=== PATIENT | female | born 1965 | race Caucasian/White ===

== ENCOUNTER 2019-01-19 04:05 | Inpatient (IN) | payer OTHER ==
[~2019-01-19] VITALS: Ht 165.1 cm; Wt 109.0 kg
[~2019-01-19 04:05] MED LIST: ATOR20TA17 PO; ATORVASTATIN CALCIUM; CHOL50009 PO; FURO40TA4 PO; GABA-526 PO; GABA300C16 PO; IBUP-1545 PO; LISI-313 PO; LORA0.5T PO; MECL-77 PO; MECL12.5 PO; MELO7.5O PO; OMEP40CA6 PO; PANT20TA3 PO; PANT40TA4 PO; RANI300C7 PO; RANI300T PO; SPIR25TA PO; SPIRONOLACTONE; TRAM50TA2 PO; [UNRECOGNIZED DRUG - CODE]
[2019-01-19 07:28] VITALS: BP 119/68; PULSE 76; RESP 16
[2019-01-19 07:46] VITALS: Ht 165.1 cm; Wt 109.0 kg
[2019-01-19] MEDS ORDERED: LORAZEPAM 0.5 MG TAB PO PRN (09:00)
[2019-01-19] MEDS ORDERED: CHOLECALCIFEROL 1,000 UNIT TAB PO SCH (09:00)
[2019-01-19] MEDS ORDERED: VANCOMYCIN IV PER PHARMACY XX SCH (10:00)
--- NOTE | 2019-01-19 10:54 | HP ---
Date/Time of Note Date/Time of Note DATE: 01/19/19 TIME: 10:46 Assessment/Plan VTE Prophylaxis Risk score (from Nsg)>0 risk: 2 SCD applied (from Ns): Yes Pharmacological prophylaxis: heparin Lines/Catheters IV Catheter Type (from Nrs): Saline Lock Assessment/Plan Hospital Course Assessment and plan 1. Right lower extremity cellulitis - We will start on antibiotics. - Follow-up on blood cultures - Infectious disease physician consulted Antipyretics as needed for fever 2.Obesity. - Weight reduction was advised. -We will get dietitian to follow 3. Hypertension. Resume on antihypertensives. Will adjust as needed 4. Hyperlipidemia. Resume on statin medication Follow-up on CHD panel 5. Suspect neuropathy. Continue home medications Discussed plan of care with Dr. Yair MIRANDA/MAI Admit Date/Time Admit Date/Time Jan 19, 2019 at 07:05 Hx of Present Illness This is a 53-year-old female with past medical history of hyperlipidemia, hypertension, GERD, neuropathy, came to [facility] due to right lower extremity swelling and pain. Patient reports that her symptoms on her right lower extremity started 14 days ago. She stated 5 days after onset she went to [facility] and the [facility] and received doxycycline antibiotic which did not help. Several days past and she went to [facility] and received Keflex with no improvement from antibiotic. The day prior to admission she did go to [facility] and did have ultrasound of bilateral lower extremities which on report was negative for any DVT. Due to insurance issues she was brought to [facility] for further evaluation. On further examination she was noted with right lower extremity swelling painful to palpation. No obvious drainage however patient did report that the right lower extremity does drain clear fluid at times. She denies any fevers. She reports having difficulty with ambulation due to swelling on right lower extremity. Reports no other symptoms. We will evaluate her for the aformentiond issues. ROS 12 point review of systems obtained and entirely negative except as mentioned in the history of present illness PMH/Family/Social Past Medical History Medical/surgical history 1. Hypertension 2. Hyperlipidemia 3. Suspect neuropathy 4. Obesity 5. Hysterectomy in 2014 6. History of tonsillectomy Medications Current Medications Atorvastatin Calcium (Lipitor) 20 mg DAILY PO ; Start 01/19/19 at 09:00 Cholecalciferol (Vitamin D) 5,000 unit DAILY PO ; Start 01/19/19 at 09:00 Furosemide (Lasix) 40 mg DAILY PO ; Start 01/19/19 at 09:00 Gabapentin (Neurontin) 300 mg BID PO ; Start 01/19/19 at 09:00 Lisinopril (Zestril) 5 mg DAILY PO ; Start 01/19/19 at 09:00 Lorazepam (Ativan) 0.5 mg DAILY PRN PO AGITATION/ANXIETY; Start 01/19/19 at 09:00 Pantoprazole (Protonix Tab) 40 mg DAILY@0600 PO ; Start 01/19/19 at 09:00 Spironolactone (Aldactone) 25 mg DAILY PO ; Start 01/19/19 at 09:00 Vancomycin HCl (Vanco Iv Per Pharmacy) VANCOMYCIN PER PHARMACY PER PROTOCOL XX ; Start 01/19/19 at 10:00; Status UNV Piperacillin Sod/ Tazobactam Sod 100 ml @ 200 mls/hr Q6 IVPB ; Start 01/19/19 at 12:00 Vancomycin HCl 2 gm/Sodium Chloride 500 ml @ 125 mls/hr Q24H IVPB ; Start 01/19/19 at 12:00 Coded Allergies: No Known Drug Allergies (Verified Allergy, Unknown, 01/19/19) Family History Significant Family History: no pertinent family hx Social History Alcohol Use: none Smoking Status: Never smoker Drug Use: none Exam/Review of Systems Vital Signs Vitals Vital Signs Date Temp Pulse Resp B/P (MAP) Pulse Ox O2 O2 Flow FiO2 Time Delivery Rate 01/19/19 98.0 76 16 119/68 96 07:28 (85) Exam Constitutional: alert, other (Obese) Psych: nl mood/affect Head: normocephalic Eyes: nl conjunctiva Neck: supple, non-tender Respiratory: clear to auscultation Cardiovascular: regular rate and rhythm Gastrointestinal: soft Extremities: edema (Bilateral lower extremities more notably on the right lower extremity with erythema on right lower extremity and no obvious drainage on right lower extremity) Neurological: ADJUST[employer]LECT[employer] CONTACTS II-XII intact, nl mental status, nl speech Skin: other (Erythema on right lower extremity) CHANNING HARLEY NP Jan 19, 2019 10:54
[2019-01-19] MEDS ORDERED: VANCOMYCIN HCL 2 GM in SOD CHLORIDE 0.9% 500 ML IVPB SCH (12:00)
[2019-01-19] MEDS ORDERED: DIPHENHYDRAMINE 50 MG INJ IM PRN (12:30)
[2019-01-19] MEDS: PIPER-TAZO 3.375 GM IV (PMX) 100 ML IVPB SCH ×3 (12:37→23:22)
[2019-01-19] MEDS: GABAPENTIN 300 MG CAP PO SCH ×2 (12:40→20:49)
[2019-01-19] MEDS: ATORVASTATIN 20 MG TAB PO SCH (12:40)
[2019-01-19] MEDS: PANTOPRAZOLE (EC) 40 MG TAB PO SCH (12:40)
[2019-01-19] MEDS: SPIRONOLACTONE 25 MG TAB PO SCH (12:40)
[2019-01-19] MEDS: CHOLECALCIFEROL 1,000 UNIT TAB PO SCH (12:40)
[2019-01-19] MEDS: FUROSEMIDE 40 MG TAB PO SCH (12:41)
[2019-01-19] MEDS: LISINOPRIL 5 MG TAB PO SCH (12:41)
[2019-01-19 14:13] VITALS: BP 112/66; PULSE 73; RESP 16
[2019-01-19] MEDS: DIPHENHYDRAMINE 50 MG INJ IV PRN (16:39)
--- NOTE | 2019-01-19 18:03 | CONS ---
DATE OF ADMISSION: 01/19/2019 DATE OF CONSULTATION: 01/19/2019 TYPE OF CONSULTATION: Infectious disease. REASON FOR CONSULTATION: Antibiotic management. HISTORY OF PRESENT ILLNESS: Polly Recinos is a 53-year-old female with a number of problems, who c omes in with right lower extremity cellulitis and is being seen for antibiotic management. Her past problems include: 1. Hyperlipidemia. 2. Hypertension. 3. GERD. 4. Peripheral neuropathy. 5. Obesity. 6. Status post hysterectomy in 2014. 7. Status post tonsillectomy. The patient came to [facility] with right lower extremity swelling and pain. Her symp toms started 14 days ago, and she states that 5 days after the onset, she went to [facility] and received doxycycline, which did not seem to help the right lower extremity cellulitis. She went to the [facility], several days later, received Keflex with no improvement. On the day prior to admission, she went to [facility], had an ultrasound of the bilateral lower ex tremities, the patient was noted to have right lower extremity swelling, painful to palpation. There is no drainage, but the patient reports that at times, there is clear fluid that drains from the rig ht lower extremity. There are no fevers. PAST MEDICAL HISTORY: Operations as outlined. FAMILY HISTORY: Noncontributory. SOCIAL HISTORY: She does not smoke, drink or abuse drugs. ALLERGIES: NONE TO PENICILLIN, SULFA OR FOODS. MEDICATIONS: Per chart. REVIEW OF SYSTEMS: As per HPI. PHYSICAL EXAMINATION: GENERAL: The patient is a well-developed, well-nourished, obese female, who is awake, responsive, in no acute distress. VITAL SIGNS: Stable. She is afebrile. SKIN: Without generalized rash. HEENT: Within normal limits. NECK: Supple. LYMPH NODES: None palpable. CHEST: Decreased breath sounds at the bases. HEART: Without murmur or gallop. ABDOMEN: Soft, nontender, without organosplenomegaly or masses. EXTREMITIES: She has edema of bilateral lower extremities, more so on the right than the left. She has erythema of the right lower extremity. No obvious drainage. RECTAL AND GENITAL: Deferred. NEUROLOGIC: No focal neurological abnormalities. IMPRESSION AND PLAN: The patient was started on vancomycin and Zosyn for cellulitis. White count wa s 5.6, H and H 13.4 and 42.1, platelet count of 239,000. BUN and creatinine 13/0.65. Continue curre nt therapy. I will dictate my findings to the hospitalist. Dictated By: KRYSTAL HALLMAN MD, JD/NTS Conf#: [id number] DID#: [id number] CC: JAMIE CESAR MD;*EndCC*
[2019-01-19 20:00] VITALS: BP 100/56; PULSE 79; RESP 18
[2019-01-19] MEDS ORDERED: ACETAMINOPHEN 325 MG TAB PO PRN (20:00)
[2019-01-19] MEDS ORDERED: IBUPROFEN 600 MG TAB PO PRN (20:00)
[2019-01-19] MEDS: HEPARIN 5,000 UNIT/1 ML VIAL SC SCH (20:49)
[2019-01-19] MEDS: VANCOMYCIN 1 GM 250 ML IVPB SCH (23:55)
[2019-01-20 02:00] VITALS: BP 106/57; PULSE 70; RESP 18
[2019-01-20] MEDS: PIPER-TAZO 3.375 GM IV (PMX) 100 ML IVPB SCH ×2 (05:32→11:10)
[2019-01-20] MEDS: PANTOPRAZOLE (EC) 40 MG TAB PO SCH (05:32)
[2019-01-20] MEDS: DIPHENHYDRAMINE 50 MG INJ IV PRN ×3 (05:35→21:16)
[2019-01-20 07:57] VITALS: BP 113/63; PULSE 72; RESP 16
[2019-01-20] MEDS: GABAPENTIN 300 MG CAP PO SCH ×2 (08:13→20:06)
[2019-01-20] MEDS: ATORVASTATIN 20 MG TAB PO SCH (08:13)
[2019-01-20] MEDS: HEPARIN 5,000 UNIT/1 ML VIAL SC SCH ×2 (08:13→20:09)
[2019-01-20] MEDS: LISINOPRIL 5 MG TAB PO SCH (08:13)
[2019-01-20] MEDS: SPIRONOLACTONE 25 MG TAB PO SCH (08:14)
[2019-01-20] MEDS: FUROSEMIDE 40 MG TAB PO SCH (08:14)
[2019-01-20] MEDS: CHOLECALCIFEROL 1,000 UNIT TAB PO SCH (10:33)
[2019-01-20] MEDS: FISH OIL 1,000 MG CAP PO SCH ×2 (10:33→20:06)
--- NOTE | 2019-01-20 10:39 | PN ---
Date/Time of Note Date/Time of Note DATE: 01/20/19 TIME: 10:36 Assessment/Plan VTE Prophylaxis Risk score (from Ns)>0 risk: 3 SCD applied (from Ns): Yes Pharmacological prophylaxis: heparin Lines/Catheters IV Catheter Type (from Nrs): Peripheral IV Urinary Cath still in place: No Assessment/Plan Hospital Course Assessment and plan 1. Right lower extremity cellulitis -continue on antibiotics. - Follow-up on blood cultures - Infectious disease physician following - Antipyretics as needed for fever 2.Obesity. - Weight reduction was advised. 3. Hypertension. - Resume on antihypertensives. Will adjust as needed 4. Hyperlipidemia. - continue on statin medication 5. Suspect neuropathy. Continue home medications DISPO/PLAN: Appears to be overall improving. continue abx. f/u cultures. f/u with ID for d/c planning Discussed plan of care with Dr. Mazariegos Result Diagram: 01/19/19 1041 01/19/19 1041 Results 24hrs Laboratory Tests Test 01/19/19 10:41 01/20/19 04:49 White Blood Count 5.6 # Red Blood Count 4.79 # Hemoglobin 13.4 # Hematocrit 42.1 # Mean Corpuscular Volume 87.9 Mean Corpuscular Hemoglobin 28.0 L Mean Corpuscular Hemoglobin Concent 31.8 L Red Cell Distribution Width 12.7 Platelet Count 239 Mean Platelet Volume 9.8 Immature Granulocytes % 0.400 Neutrophils % 52.4 Lymphocytes % 33.0 Monocytes % 8.7 Eosinophils % 5.3 Basophils % 0.2 Nucleated Red Blood Cells % 0.0 Immature Granulocytes # 0.020 Neutrophils # 3.0 Lymphocytes # 1.9 Monocytes # 0.5 Eosinophils # 0.3 Basophils # 0.0 Nucleated Red Blood Cells # 0.0 Sodium Level 141 Potassium Level 4.3 Chloride Level 106 Carbon Dioxide Level 28 Anion Gap 7 Blood Urea Nitrogen 13 Creatinine 0.65 Est Glomerular Filtrat Rate mL/min > 60 Glucose Level 93 Calcium Level 9.4 Total Bilirubin 0.5 Direct Bilirubin 0.00 Indirect Bilirubin 0.5 Aspartate Amino Transf (AST/SGOT) 29 Alanine Aminotransferase (ALT/SGPT) 35 Alkaline Phosphatase 113 Total Protein 7.1 Albumin 3.9 Globulin 3.20 Albumin/Globulin Ratio 1.21 Hemoglobin A1c 5.2 Triglycerides Level 231 H Cholesterol Level 182 LDL Cholesterol, Calculated 108 HDL Cholesterol 28 L Cholesterol/HDL Ratio 6.5 Free Thyroxine Index 2.25 Thyroxine (T4) 7.0 Triiodothyronine (T3) Uptake 32.1 Subjective 24 Hr Interval Summary Free Text/Dictation reports less pain on RLE. States she can put weight on leg now. Exam/Review of Systems Exam Vitals Vital Signs Date Temp Pulse Resp B/P (MAP) Pulse Ox O2 O2 Flow FiO2 Time Delivery Rate 01/20/19 97.8 72 16 113/63 97 07:57 (80) Intake and Output 01/19/19 01/19/19 01/20/19 1515:00 23:00 07:00 IntakeIntake Total 740 ml 1120 ml 1050 ml OutputOutput Total 800 ml BalanceBalance 740 ml 320 ml 1050 ml Constitutional: alert, oriented, obese Psych: no complaints Head: normocephalic Neck: supple, non-tender Respiratory: clear to auscultation, normal air movement Cardiovascular: regular rate and rhythm Gastrointestinal: soft, non-tender Musculoskeletal: swelling (BLE) 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, nl mental status, nl speech Skin: other (erythema RLE, getting better ) Results Results 24hrs Laboratory Tests Test 01/19/19 10:41 01/20/19 04:49 White Blood Count 5.6 # Red Blood Count 4.79 # Hemoglobin 13.4 # Hematocrit 42.1 # Mean Corpuscular Volume 87.9 Mean Corpuscular Hemoglobin 28.0 L Mean Corpuscular Hemoglobin Concent 31.8 L Red Cell Distribution Width 12.7 Platelet Count 239 Mean Platelet Volume 9.8 Immature Granulocytes % 0.400 Neutrophils % 52.4 Lymphocytes % 33.0 Monocytes % 8.7 Eosinophils % 5.3 Basophils % 0.2 Nucleated Red Blood Cells % 0.0 Immature Granulocytes # 0.020 Neutrophils # 3.0 Lymphocytes # 1.9 Monocytes # 0.5 Eosinophils # 0.3 Basophils # 0.0 Nucleated Red Blood Cells # 0.0 Sodium Level 141 Potassium Level 4.3 Chloride Level 106 Carbon Dioxide Level 28 Anion Gap 7 Blood Urea Nitrogen 13 Creatinine 0.65 Est Glomerular Filtrat Rate mL/min > 60 Glucose Level 93 Calcium Level 9.4 Total Bilirubin 0.5 Direct Bilirubin 0.00 Indirect Bilirubin 0.5 Aspartate Amino Transf (AST/SGOT) 29 Alanine Aminotransferase (ALT/SGPT) 35 Alkaline Phosphatase 113 Total Protein 7.1 Albumin 3.9 Globulin 3.20 Albumin/Globulin Ratio 1.21 Hemoglobin A1c 5.2 Triglycerides Level 231 H Cholesterol Level 182 LDL Cholesterol, Calculated 108 HDL Cholesterol 28 L Cholesterol/HDL Ratio 6.5 Free Thyroxine Index 2.25 Thyroxine (T4) 7.0 Triiodothyronine (T3) Uptake 32.1 Medications Medication Current Medications Atorvastatin Calcium (Lipitor) 20 mg DAILY PO Last administered on 01/20/19 08:13; Admin Dose 20 MG; Start 01/19/19 at 09:00 Cholecalciferol (Vitamin D) 5,000 unit DAILY PO Last administered on 01/20/19 10:33; Admin Dose 5,000 UNIT; Start 01/19/19 at 09:00 Furosemide (Lasix) 40 mg DAILY PO Last administered on 01/20/19 08:14; Admin Dose 40 MG; Start 01/19/19 at 09:00 Gabapentin (Neurontin) 300 mg BID PO Last administered on 01/20/19 08:13; Admin Dose 300 MG; Start 01/19/19 at 09:00 Lisinopril (Zestril) 5 mg DAILY PO Last administered on 01/20/19 08:13; Admin Dose 5 MG; Start 01/19/19 at 09:00 Lorazepam (Ativan) 0.5 mg DAILY PRN PO AGITATION/ANXIETY; Start 01/19/19 at 09:00 Pantoprazole (Protonix Tab) 40 mg DAILY@0600 PO Last administered on 01/20/19 05:32; Admin Dose 40 MG; Start 01/19/19 at 09:00 Spironolactone (Aldactone) 25 mg DAILY PO Last administered on 01/20/19 08:14; Admin Dose 25 MG; Start 01/19/19 at 09:00 Vancomycin HCl (Vanco Iv Per Pharmacy) VANCOMYCIN PER PHARMACY PER PROTOCOL XX ; Start 01/19/19 at 10:00 Piperacillin Sod/ Tazobactam Sod 100 ml @ 200 mls/hr Q6 IVPB Last administered on 01/20/19 05:32; Admin Dose 200 MLS/HR; Start 01/19/19 at 12:00 Heparin Sodium (Porcine) (Heparin (5000 Units/1ml)) 5,000 unit BID SC Last administered on 01/20/19 08:13; Admin Dose 5,000 UNIT; Start 01/19/19 at 21:00 Vancomycin HCl 250 ml @ 125 mls/hr Q12H IVPB Last administered on 01/19/19at 23:55; Admin Dose 125 MLS/HR; Start 01/20/19 at 00:00 Diphenhydramine HCl (Benadryl) 25 mg Q6H PRN IV pruritis Last administered on 01/20/19at 05:35; Admin Dose 25 MG; Start 01/19/19 at 16:00 Acetaminophen (Tylenol Tab) 650 mg Q6H PRN PO MILD PAIN(1-3)OR ELEVATED TEMP; Start 01/19/19 at 20:00 Ibuprofen (Motrin) 600 mg Q6H PRN PO MILD PAIN LEVEL 1-3 Last administered on 01/19/19at 20:00; Admin Dose 600 MG; Start 01/19/19 at 20:00 Miscellaneous Information (*Rx Drug Level Order Reminder*) VANCO TROUGH 01/20 @ 2,300 2300 ONCE XX ; Start 01/20/19 at 23:00; Stop 01/20/19 at 23:01 Fish Oil (Fish Oil) 1,000 mg BID PO Last administered on 01/20/19at 10:33; Admin Dose 1,000 MG; Start 01/20/19 at 09:00 CHANNING HARLEY NP Jan 20, 2019 10:39
[2019-01-20] MEDS: VANCOMYCIN 1 GM 250 ML IVPB SCH ×2 (12:51→23:47)
--- NOTE | 2019-01-20 14:20 | CONS ---
Assessment/Plan Assessment/Plan Hospital Course (Demo Recall) Alert looks comfortable right lower extremity pain is better swelling is better no fevers overnight antimicrobials vancomycin Zosyn Microbiology: Blood culture negative Physical examination obese well-developed middle-aged woman who is alert in no distress. Head atraumatic normocephalic neck is supple chest rise symmetrical breath sounds clear heart: S1-S2 abdomen soft bowel sounds present extremities with right lower extremity edema and erythema below knee Assessment: 1. Right lower extremity cellulitis 2. Obesity Plan: Patient remains stable were going to change Zosyn to Rocephin continue vancomycin keep right lower extremity elevated in order ultrasound to rule out DVT Consultation Date/Type/Reason Admit Date/Time Jan 19, 2019 at 07:05 Initial Consult Date Type of Consult id Date/Time of Note DATE: 01/20/19 TIME: 14:20 Exam/Review of Systems Exam Vitals Vital Signs Date Temp Pulse Resp B/P (MAP) Pulse Ox O2 O2 Flow FiO2 Time Delivery Rate 01/20/19 97.8 72 16 113/63 97 07:57 (80) Intake and Output 01/19/19 01/19/19 01/20/19 1515:00 23:00 07:00 IntakeIntake Total 740 ml 1120 ml 1050 ml OutputOutput Total 800 ml BalanceBalance 740 ml 320 ml 1050 ml Results Result Diagram: 01/19/19 1041 01/19/19 1041 Results 24hrs Laboratory Tests Test 01/20/19 04:49 Hemoglobin A1c 5.2 Triglycerides Level 231 H Cholesterol Level 182 LDL Cholesterol, Calculated 108 HDL Cholesterol 28 L Cholesterol/HDL Ratio 6.5 Free Thyroxine Index 2.25 Thyroxine (T4) 7.0 Triiodothyronine (T3) Uptake 32.1 Medications Medication Current Medications Atorvastatin Calcium (Lipitor) 20 mg DAILY PO Last administered on 01/20/19at 08:13; Admin Dose 20 MG; Start 01/19/19 at 09:00 Cholecalciferol (Vitamin D) 5,000 unit DAILY PO Last administered on 01/20/19at 10:33; Admin Dose 5,000 UNIT; Start 01/19/19 at 09:00 Furosemide (Lasix) 40 mg DAILY PO Last administered on 01/20/19at 08:14; Admin Dose 40 MG; Start 01/19/19 at 09:00 Gabapentin (Neurontin) 300 mg BID PO Last administered on 01/20/19 08:13; Admin Dose 300 MG; Start 01/19/19 at 09:00 Lisinopril (Zestril) 5 mg DAILY PO Last administered on 01/20/19 08:13; Admin Dose 5 MG; Start 01/19/19 at 09:00 Lorazepam (Ativan) 0.5 mg DAILY PRN PO AGITATION/ANXIETY; Start 01/19/19 at 09:00 Pantoprazole (Protonix Tab) 40 mg DAILY@0600 PO Last administered on 01/20/19 05:32; Admin Dose 40 MG; Start 01/19/19 at 09:00 Spironolactone (Aldactone) 25 mg DAILY PO Last administered on 01/20/19 08:14; Admin Dose 25 MG; Start 01/19/19 at 09:00 Vancomycin HCl (Vanco Iv Per Pharmacy) VANCOMYCIN PER PHARMACY PER PROTOCOL XX ; Start 01/19/19 at 10:00 Piperacillin Sod/ Tazobactam Sod 100 ml @ 200 mls/hr Q6 IVPB Last administered on 01/20/19at 11:10; Admin Dose 200 MLS/HR; Start 01/19/19 at 12:00 Heparin Sodium (Porcine) (Heparin (5000 Units/1ml)) 5,000 unit BID SC Last administered on 01/20/19 08:13; Admin Dose 5,000 UNIT; Start 01/19/19 at 21:00 Vancomycin HCl 250 ml @ 125 mls/hr Q12H IVPB Last administered on 01/20/19 12:51; Admin Dose 125 MLS/HR; Start 01/20/19 at 00:00 Diphenhydramine HCl (Benadryl) 25 mg Q6H PRN IV pruritis Last administered on 01/20/19 05:35; Admin Dose 25 MG; Start 01/19/19 at 16:00 Acetaminophen (Tylenol Tab) 650 mg Q6H PRN PO MILD PAIN(1-3)OR ELEVATED TEMP; Start 01/19/19 at 20:00 Ibuprofen (Motrin) 600 mg Q6H PRN PO MILD PAIN LEVEL 1-3 Last administered on 01/19/19at 20:00; Admin Dose 600 MG; Start 01/19/19 at 20:00 Miscellaneous Information (*Rx Drug Level Order Reminder*) VANCO TROUGH 01/20 @ 2,300 2300 ONCE XX ; Start 01/20/19 at 23:00; Stop 01/20/19 at 23:01 Fish Oil (Fish Oil) 1,000 mg BID PO Last administered on 01/20/19at 10:33; Admin Dose 1,000 MG; Start 01/20/19 at 09:00 AISHA MASON NP Jan 20, 2019 14:20
[2019-01-20 14:57] VITALS: BP 99/60; PULSE 84; RESP 16
[2019-01-20] MEDS ORDERED: CEFTRIAXONE 1 GM/50 ML (PMX) 50 ML IVPB SCH (15:00)
[2019-01-20 19:15] VITALS: BP 104/65; PULSE 80; RESP 18
[2019-01-21 01:08] VITALS: BP 115/65; PULSE 84; RESP 18
[2019-01-21] MEDS: PANTOPRAZOLE (EC) 40 MG TAB PO SCH (05:27)
[2019-01-21] MEDS: DIPHENHYDRAMINE 50 MG INJ IV PRN ×3 (05:31→21:31)
[2019-01-21 08:25] VITALS: BP 115/59; PULSE 78; RESP 16
[2019-01-21] MEDS: CHOLECALCIFEROL 1,000 UNIT TAB PO SCH (08:41)
[2019-01-21] MEDS: SPIRONOLACTONE 25 MG TAB PO SCH (08:41)
[2019-01-21] MEDS: LISINOPRIL 5 MG TAB PO SCH (08:41)
[2019-01-21] MEDS: GABAPENTIN 300 MG CAP PO SCH ×2 (08:42→21:26)
[2019-01-21] MEDS: FUROSEMIDE 40 MG TAB PO SCH (08:42)
[2019-01-21] MEDS: ATORVASTATIN 20 MG TAB PO SCH (08:42)
[2019-01-21] MEDS: HEPARIN 5,000 UNIT/1 ML VIAL SC SCH ×2 (08:58→21:31)
[2019-01-21] MEDS: FISH OIL 1,000 MG CAP PO SCH ×2 (10:11→21:26)
[2019-01-21] MEDS: VANCOMYCIN 1 GM 250 ML IVPB SCH (12:54)
--- NOTE | 2019-01-21 13:16 | PN ---
Date/Time of Note Date/Time of Note DATE: 01/21/19 TIME: 13:12 Assessment/Plan VTE Prophylaxis Risk score (from Ns)>0 risk: 3 SCD applied (from Ns): Yes Pharmacological prophylaxis: heparin Lines/Catheters IV [facility]from [facility] Saline Lock Urinary Cath still in place: No Assessment/Plan Hospital Course Assessment and plan 1. Right lower extremity cellulitis -continue on antibiotics. - Follow-up on blood cultures - Infectious disease physician following - Antipyretics as needed for fever 2.Obesity. - Weight reduction was advised. 3. Hypertension. - Resume on antihypertensives. Will adjust as needed 4. Hyperlipidemia. - continue on statin medication 5. Suspect neuropathy. Continue home medications 6. pruritis/urticaria -Patient reports that her itching is started prior to admission. She states that she was on 2 antibiotics with Keflex and doxycycline that was used to treat her right lower leg infection previous to coming in. She is unsure whether those might be the cause of her itchiness and rash. Currently she reports that her itchiness is going up to her arms and upper legs now. She is unsure whether this was from antibiotic treatment. Will provide with antihistamine. ID consult following for antibiotic readjustment. Provided with steroid medication as needed. Monitor for now. DISPO/PLAN: abx adjustment per ID. Steroid medication and antihistamine for urticaria/pruritus. Monitor in-house. Anticipate discharge in 1 to 2 days pending clinical course. Discussed plan of care with Dr. Bennett Result Diagram: 01/21/19 0445 01/21/19 0445 Results 24hrs Laboratory Tests Test 01/20/19 23:05 01/21/19 04:45 Vancomycin Level Trough 14.0 White Blood Count 7.2 # Red Blood Count 4.85 Hemoglobin 13.7 Hematocrit 42.7 Mean Corpuscular Volume 88.0 Mean Corpuscular Hemoglobin 28.2 L Mean Corpuscular Hemoglobin Concent 32.1 Red Cell Distribution Width 13.1 Platelet Count 246 Mean Platelet Volume 10.2 Immature Granulocytes % 0.600 H Neutrophils % 62.5 Lymphocytes % 24.2 Monocytes % 6.6 Eosinophils % 6.0 Basophils % 0.1 Nucleated Red Blood Cells % 0.0 Immature Granulocytes # 0.040 H Neutrophils # 4.5 Lymphocytes # 1.8 Monocytes # 0.5 Eosinophils # 0.4 Basophils # 0.0 Nucleated Red Blood Cells # 0.0 Sodium Level 139 Potassium Level 4.1 Chloride Level 107 Carbon Dioxide Level 26 Anion Gap 6 Blood Urea Nitrogen 16 Creatinine 0.81 Est Glomerular Filtrat Rate mL/min > 60 Glucose Level 100 Calcium Level 9.3 Subjective 24 Hr Interval Summary Free Text/Dictation reports less swelling RLE. states she feels all over. 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, nl mental status, nl speech Skin: other (erythema RLE, getting better ), rash noted bue, ble Results Results 24hrs Laboratory Tests Test 01/20/19 23:05 01/21/19 04:45 Vancomycin Level Trough 14.0 White Blood Count 7.2 # Red Blood Count 4.85 Hemoglobin 13.7 Hematocrit 42.7 Mean Corpuscular Volume 88.0 Mean Corpuscular Hemoglobin 28.2 L Mean Corpuscular Hemoglobin Concent 32.1 Red Cell Distribution Width 13.1 Platelet Count 246 Mean Platelet Volume 10.2 Immature Granulocytes % 0.600 H Neutrophils % 62.5 Lymphocytes % 24.2 Monocytes % 6.6 Eosinophils % 6.0 Basophils % 0.1 Nucleated Red Blood Cells % 0.0 Immature Granulocytes # 0.040 H Neutrophils # 4.5 Lymphocytes # 1.8 Monocytes # 0.5 Eosinophils # 0.4 Basophils # 0.0 Nucleated Red Blood Cells # 0.0 Sodium Level 139 Potassium Level 4.1 Chloride Level 107 Carbon Dioxide Level 26 Anion Gap 6 Blood Urea Nitrogen 16 Creatinine 0.81 Est Glomerular Filtrat Rate mL/min > 60 Glucose Level 100 Calcium Level 9.3 Medications Medication Current Medications Atorvastatin Calcium (Lipitor) 20 mg DAILY PO Last administered on 01/21/19 08:42; Admin Dose 20 MG; Start 01/19/19 at 09:00 Cholecalciferol (Vitamin D) 5,000 unit DAILY PO Last administered on 01/21/19 08:41; Admin Dose 5,000 UNIT; Start 01/19/19 at 09:00 Furosemide (Lasix) 40 mg DAILY PO Last administered on 01/21/19 08:42; Admin Dose 40 MG; Start 01/19/19 at 09:00 Gabapentin (Neurontin) 300 mg BID PO Last administered on 01/21/19 08:42; Admin Dose 300 MG; Start 01/19/19 at 09:00 Lisinopril (Zestril) 5 mg DAILY PO Last administered on 01/21/19 08:41; Admin Dose 5 MG; Start 01/19/19 at 09:00 Lorazepam (Ativan) 0.5 mg DAILY PRN PO AGITATION/ANXIETY; Start 01/19/19 at 09:00 Pantoprazole (Protonix Tab) 40 mg DAILY@0600 PO Last administered on 01/21/19 05:27; Admin Dose 40 MG; Start 01/19/19 at 09:00 Spironolactone (Aldactone) 25 mg DAILY PO Last administered on 01/21/19 08:41; Admin Dose 25 MG; Start 01/19/19 at 09:00 Vancomycin HCl (Vanco Iv Per Pharmacy) VANCOMYCIN PER PHARMACY PER PROTOCOL XX ; Start 01/19/19 at 10:00 Heparin Sodium (Porcine) (Heparin (5000 Units/1ml)) 5,000 unit BID SC Last administered on 01/21/19 08:58; Admin Dose 5,000 UNIT; Start 01/19/19 at 21:00 Vancomycin HCl 250 ml @ 125 mls/hr Q12H IVPB Last administered on 01/21/19 12:54; Admin Dose 125 MLS/HR; Start 01/20/19 at 00:00 Diphenhydramine HCl (Benadryl) 25 mg Q6H PRN IV pruritis Last administered on 01/21/19 13:03; Admin Dose 25 MG; Start 01/19/19 at 16:00 Acetaminophen (Tylenol Tab) 650 mg Q6H PRN PO MILD PAIN(1-3)OR ELEVATED TEMP; Start 01/19/19 at 20:00 Ibuprofen (Motrin) 600 mg Q6H PRN PO MILD PAIN LEVEL 1-3 Last administered on 01/19/19at 20:00; Admin Dose 600 MG; Start 01/19/19 at 20:00 Fish Oil (Fish Oil) 1,000 mg BID PO Last administered on 01/21/19at 10:11; Admin Dose 1,000 MG; Start 01/20/19 at 09:00 Ceftriaxone Sodium 50 ml @ 100 mls/hr Q24H IVPB Last administered on 01/20/19at 15:18; Admin Dose 100 MLS/HR; Start 01/20/19 at 15:00 CHANNING HARLEY NP Jan 21, 2019 13:16
[2019-01-21] MEDS ORDERED: METHYLPREDNISOLONE 125 MG INJ IV ONE (13:30)
--- NOTE | 2019-01-21 13:39 | CONS ---
Assessment/Plan Assessment/Plan Hospital Course (Demo Recall) Patient developed rash and itching all over the body she is awake in no distress right lower extremity looks much better WBC 7.2 no shift no bands BUN 16 creatinine 0.81. Right lower extremity ultrasound revealed no DVT Microbiology: Blood culture negative Physical examination obese well-developed middle-aged woman who is alert in no distress. Head atraumatic normocephalic neck is supple chest rise symmetrical breath sounds clear heart: S1-S2 abdomen soft bowel sounds present extremities with right lower extremity edema and erythema below knee Assessment: 1. Right lower extremity cellulitis 2. Obesity Plan: Clinically stable, right lower extremity with marked improvement, will discontinue Rocephin, keep her on IV vancomycin continue Benadryl and add oral Claritin, anticipate discharge on oral clindamycin for 5-7 more days Consultation Date/Type/Reason Admit Date/Time Jan 19, 2019 at 07:05 Initial Consult Date Type of Consult id Date/Time of Note DATE: 01/21/19 TIME: 13:38 Exam/Review of Systems Exam Vitals Vital Signs Date Temp Pulse Resp B/P (MAP) Pulse Ox O2 O2 Flow FiO2 Time Delivery Rate 01/21/19 98.3 78 16 115/59 98 08:25 (77) Intake and Output 01/20/19 01/20/19 01/21/19 1515:00 23:00 07:00 IntakeIntake Total 1270 ml 490 ml 250 ml BalanceBalance 1270 ml 490 ml 250 ml Results Result Diagram: 01/21/19 0445 01/21/19 0445 Results 24hrs Laboratory Tests Test 01/20/19 23:05 01/21/19 04:45 Vancomycin Level Trough 14.0 White Blood Count 7.2 # Red Blood Count 4.85 Hemoglobin 13.7 Hematocrit 42.7 Mean Corpuscular Volume 88.0 Mean Corpuscular Hemoglobin 28.2 L Mean Corpuscular Hemoglobin Concent 32.1 Red Cell Distribution Width 13.1 Platelet Count 246 Mean Platelet Volume 10.2 Immature Granulocytes % 0.600 H Neutrophils % 62.5 Lymphocytes % 24.2 Monocytes % 6.6 Eosinophils % 6.0 Basophils % 0.1 Nucleated Red Blood Cells % 0.0 Immature Granulocytes # 0.040 H Neutrophils # 4.5 Lymphocytes # 1.8 Monocytes # 0.5 Eosinophils # 0.4 Basophils # 0.0 Nucleated Red Blood Cells # 0.0 Sodium Level 139 Potassium Level 4.1 Chloride Level 107 Carbon Dioxide Level 26 Anion Gap 6 Blood Urea Nitrogen 16 Creatinine 0.81 Est Glomerular Filtrat Rate mL/min > 60 Glucose Level 100 Calcium Level 9.3 Medications Medication Current Medications Atorvastatin Calcium (Lipitor) 20 mg DAILY PO Last administered on 01/21/19 08:42; Admin Dose 20 MG; Start 01/19/19 at 09:00 Cholecalciferol (Vitamin D) 5,000 unit DAILY PO Last administered on 01/21/19 08:41; Admin Dose 5,000 UNIT; Start 01/19/19 at 09:00 Furosemide (Lasix) 40 mg DAILY PO Last administered on 01/21/19 08:42; Admin Dose 40 MG; Start 01/19/19 at 09:00 Gabapentin (Neurontin) 300 mg BID PO Last administered on 01/21/19 08:42; Admin Dose 300 MG; Start 01/19/19 at 09:00 Lisinopril (Zestril) 5 mg DAILY PO Last administered on 01/21/19 08:41; Admin Dose 5 MG; Start 01/19/19 at 09:00 Lorazepam (Ativan) 0.5 mg DAILY PRN PO AGITATION/ANXIETY; Start 01/19/19 at 09:00 Pantoprazole (Protonix Tab) 40 mg DAILY@0600 PO Last administered on 01/21/19 05:27; Admin Dose 40 MG; Start 01/19/19 at 09:00 Spironolactone (Aldactone) 25 mg DAILY PO Last administered on 01/21/19 08:41; Admin Dose 25 MG; Start 01/19/19 at 09:00 Vancomycin HCl (Vanco Iv Per Pharmacy) VANCOMYCIN PER PHARMACY PER PROTOCOL XX ; Start 01/19/19 at 10:00 Heparin Sodium (Porcine) (Heparin (5000 Units/1ml)) 5,000 unit BID SC Last administered on 01/21/19 08:58; Admin Dose 5,000 UNIT; Start 01/19/19 at 21:00 Vancomycin HCl 250 ml @ 125 mls/hr Q12H IVPB Last administered on 01/21/19 12:54; Admin Dose 125 MLS/HR; Start 01/20/19 at 00:00 Diphenhydramine HCl (Benadryl) 25 mg Q6H PRN IV pruritis Last administered on 01/21/19 13:03; Admin Dose 25 MG; Start 01/19/19 at 16:00 Acetaminophen (Tylenol Tab) 650 mg Q6H PRN PO MILD PAIN(1-3)OR ELEVATED TEMP; Start 01/19/19 at 20:00 Ibuprofen (Motrin) 600 mg Q6H PRN PO MILD PAIN LEVEL 1-3 Last administered on 01/19/19 20:00; Admin Dose 600 MG; Start 01/19/19 at 20:00 Fish Oil (Fish Oil) 1,000 mg BID PO Last administered on 01/21/19 10:11; Admin Dose 1,000 MG; Start 01/20/19 at 09:00 Ceftriaxone Sodium 50 ml @ 100 mls/hr Q24H IVPB Last administered on 01/20/19 15:18; Admin Dose 100 MLS/HR; Start 01/20/19 at 15:00 AISHA MASON NP Jan 21, 2019 13:39
[2019-01-21 14:38] VITALS: BP 114/59; PULSE 79; RESP 16
[2019-01-21] MEDS: LORATADINE 10 MG TAB PO SCH (17:20)
[2019-01-21 20:18] VITALS: BP 111/57; PULSE 84; RESP 18
[2019-01-22] MEDS: VANCOMYCIN 1 GM 250 ML IVPB SCH ×2 (00:26→11:49)
[2019-01-22 01:45] VITALS: BP 118/61; PULSE 83; RESP 16
[2019-01-22] MEDS: PANTOPRAZOLE (EC) 40 MG TAB PO SCH (06:09)
[2019-01-22 07:54] VITALS: BP 118/64; PULSE 85; RESP 20
[2019-01-22] MEDS: FISH OIL 1,000 MG CAP PO SCH (08:54)
[2019-01-22] MEDS: CHOLECALCIFEROL 1,000 UNIT TAB PO SCH (08:56)
[2019-01-22] MEDS: HEPARIN 5,000 UNIT/1 ML VIAL SC SCH (08:56)
[2019-01-22] MEDS: GABAPENTIN 300 MG CAP PO SCH (08:56)
[2019-01-22] MEDS: FUROSEMIDE 40 MG TAB PO SCH (08:57)
[2019-01-22] MEDS: DIPHENHYDRAMINE 50 MG INJ IV PRN (08:57)
[2019-01-22] MEDS: SPIRONOLACTONE 25 MG TAB PO SCH (08:57)
[2019-01-22] MEDS: LORATADINE 10 MG TAB PO SCH (08:58)
[2019-01-22] MEDS: ATORVASTATIN 20 MG TAB PO SCH (08:58)
[2019-01-22] MEDS: LISINOPRIL 5 MG TAB PO SCH (08:58)
[2019-01-22] MEDS ORDERED: predniSONE 20 MG TAB PO ONE (10:30)
--- NOTE | 2019-01-22 12:10 | PDOCDIS ---
Discharge Instructions DIAGNOSIS Discharge Diagnosis 1. Right lower extremity cellulitis 2.Obesity. 3. Hypertension. 4. Hyperlipidemia. 5. Suspect neuropathy. 6. pruritis/urticaria CONDITION 2 [id number] Patient Condition: [id number] Stable FOLLOW UP/APPOINTMENTS Follow-up Plan 1. Follow up with your primary care provider in one week CHANNING HARLEY NP Jan 22, 2019 12:10
[2019-01-22] MEDS ORDERED: ATOR40TA68 PO (12:13)
[2019-01-22] MEDS ORDERED: SACC250C PO (12:13)
[2019-01-22] MEDS ORDERED: CLIN300C10 PO ×2 (12:13→14:24)
[2019-01-22] MEDS ORDERED: OMEG100024 PO (12:13)
[2019-01-22] MEDS ORDERED: PRED20TA PO (12:16)
[2019-01-22 14:24] VITALS: BP 116/65; PULSE 84; RESP 20
--- NOTE | 2019-01-22 14:33 | CONS ---
Assessment/Plan Assessment/Plan Hospital Course (Demo Recall) Doing better, rash resolving, right lower extremity cellulitis almost resolved, no fevers Microbiology: Blood culture negative Physical examination obese well-developed middle-aged woman who is alert in no distress. Head atraumatic normocephalic neck is supple chest rise symmetrical breath sounds clear heart: S1-S2 abdomen soft bowel sounds present extremities with right lower extremity edema and erythema below knee Assessment: 1. Right lower extremity cellulitis 2. Obesity Plan: Patient is doing better, okay discharge on oral clindamycin for 5 more days, continue Claritin Consultation Date/Type/Reason Admit Date/Time Jan 19, 2019 at 07:05 Initial Consult Date Type of Consult id Date/Time of Note DATE: 01/22/19 TIME: 14:33 Exam/Review of Systems Exam Vitals Vital Signs Date Temp Pulse Resp B/P (MAP) Pulse Ox O2 O2 Flow FiO2 Time Delivery Rate 01/22/19 97.8 84 20 116/65 95 14:24 (82) Intake and Output 01/21/19 01/21/19 01/22/19 1515:00 23:00 07:00 IntakeIntake Total 1410 ml 840 ml 610 ml BalanceBalance 1410 ml 840 ml 610 ml Results Result Diagram: 01/22/19 0440 01/22/19 0440 Results 24hrs Laboratory Tests Test 01/22/19 04:40 White Blood Count 11.1 #H Red Blood Count 4.65 Hemoglobin 13.2 Hematocrit 40.3 Mean Corpuscular Volume 86.7 Mean Corpuscular Hemoglobin 28.4 L Mean Corpuscular Hemoglobin Concent 32.8 Red Cell Distribution Width 12.8 Platelet Count 252 Mean Platelet Volume 9.9 Immature Granulocytes % 0.400 Neutrophils % 88.4 H Lymphocytes % 8.2 L Monocytes % 2.8 Eosinophils % 0.0 Basophils % 0.2 Nucleated Red Blood Cells % 0.0 Immature Granulocytes # 0.040 H Neutrophils # 9.8 H Lymphocytes # 0.9 Monocytes # 0.3 Eosinophils # 0.0 Basophils # 0.0 Nucleated Red Blood Cells # 0.0 Sodium Level 140 Potassium Level 4.5 Chloride Level 105 Carbon Dioxide Level 27 Anion Gap 8 Blood Urea Nitrogen 13 Creatinine 0.70 Est Glomerular Filtrat Rate mL/min > 60 Glucose Level 152 Calcium Level 9.6 Medications Medication Current Medications Cholecalciferol (Vitamin D) 5,000 unit DAILY PO Last administered on 01/22/19 08:56; Admin Dose 5,000 UNIT; Start 01/19/19 at 09:00 Furosemide (Lasix) 40 mg DAILY PO Last administered on 01/22/19 08:57; Admin Dose 40 MG; Start 01/19/19 at 09:00 Gabapentin (Neurontin) 300 mg BID PO Last administered on 01/22/19 08:56; Admin Dose 300 MG; Start 01/19/19 at 09:00 Lisinopril (Zestril) 5 mg DAILY PO Last administered on 01/22/19 08:58; Admin Dose 5 MG; Start 01/19/19 at 09:00 Lorazepam (Ativan) 0.5 mg DAILY PRN PO AGITATION/ANXIETY; Start 01/19/19 at 09:00 Pantoprazole (Protonix Tab) 40 mg DAILY@0600 PO Last administered on 01/22/19 06:09; Admin Dose 40 MG; Start 01/19/19 at 09:00 Spironolactone (Aldactone) 25 mg DAILY PO Last administered on 01/22/19 08:57; Admin Dose 25 MG; Start 01/19/19 at 09:00 Vancomycin HCl (Vanco Iv Per Pharmacy) VANCOMYCIN PER PHARMACY PER PROTOCOL XX ; Start 01/19/19 at 10:00 Heparin Sodium (Porcine) (Heparin (5000 Units/1ml)) 5,000 unit BID SC Last administered on 01/22/19 08:56; Admin Dose 5,000 UNIT; Start 01/19/19 at 21:00 Vancomycin HCl 250 ml @ 125 mls/hr Q12H IVPB Last administered on 01/22/19 11:49; Admin Dose 125 MLS/HR; Start 01/20/19 at 00:00 Diphenhydramine HCl (Benadryl) 25 mg Q6H PRN IV pruritis Last administered on 01/22/19 08:57; Admin Dose 25 MG; Start 01/19/19 at 16:00 Acetaminophen (Tylenol Tab) 650 mg Q6H PRN PO MILD PAIN(1-3)OR ELEVATED TEMP Last administered on 01/22/19 06:09; Admin Dose 650 MG; Start 01/19/19 at 20:00 Ibuprofen (Motrin) 600 mg Q6H PRN PO MILD PAIN LEVEL 1-3 Last administered on 01/19/19at 20:00; Admin Dose 600 MG; Start 01/19/19 at 20:00 Fish Oil (Fish Oil) 1,000 mg BID PO Last administered on 01/22/19at 08:54; Admin Dose 1,000 MG; Start 01/20/19 at 09:00 Loratadine (Claritin) 10 mg DAILY PO Last administered on 01/22/19at 08:58; Admin Dose 10 MG; Start 01/21/19 at 14:00 Atorvastatin Calcium (Lipitor) 40 mg DAILY PO ; Start 01/23/19 at 09:00 AISHA MASON NP Jan 22, 2019 14:33
--- NOTE | 2019-01-22 22:02 | DS ---
Date/Time of Note Date/Time of Note DATE: 01/22/19 TIME: 21:56 Discharge Summary Admission/Discharge Info Admit Date/Time Jan 19, 2019 at 07:05 Discharge Date/Time Jan 22, 2019 at 15:00 Discharge Diagnosis 1. Right lower extremity cellulitis 2.Obesity. 3. Hypertension. 4. Hyperlipidemia. 5. Suspect neuropathy. 6. pruritis/urticaria Patient Condition: Stable Consults 1. Dr. Juan Antonio Trotter Hx of Present Illness This is a 53-year-old female with past medical history of hyperlipidemia, hypertension, GERD, neuropathy, came to [facility] due to right lower extremity swelling and pain. Patient reports that her symptoms on her right lower extremity started 14 days ago. She stated 5 days after onset she went to [facility] and received doxycycline antibiotic which did not help. Several days past and she went to [facility] and received Keflex with no improvement from antibiotic. The day prior to admission she did go to [facility] and did have ultrasound of bilateral lower extremities which on report was negative for any DVT. Due to insurance issues she was brought to [facility] for further evaluation. On further examination she was noted with right lower extremity swelling painful to palpation. No obvious drainage however patient did report that the right lower extremity does drain clear fluid at times. She denies any fevers. She reports having difficulty with ambulation due to swelling on right lower extremity. Reports no other symptoms. We will evaluate her for the aformentiond issues. Hospital Course This is a 53-year-old female with past medical history of hyperlipidemia, hypertension, GERD, neuropathy, came to [facility] due to right lower extremity swelling and pain. Patient reports that her symptoms on her right lower extremity started 14 days ago. She stated 5 days after onset she went to [facility] and received doxycycline antibiotic which did not help. Several days past and she went to [facility] and received Keflex with no improvement from antibiotic. The day prior to admission she did go to [facility] and did have ultrasound of bilateral lower extremities which on report was negative for any DVT. Due to insurance issues she was brought to [facility] for further evaluation. On further examination she was noted with right lower extremity swelling painful to palpation. Patient was with cellulitis on RLE. We did get infectious disease specialist to provide the antibiotic regimen for the patient. Patient did have good response to abx treatment. Patient did have some rash and itchiness. Patient was on keflex and doxycycline medication prior to admission and was provided zosyn while inhouse. Suspect possible allergic reaction, however due to patient's abx course, exact etiology unknown. Patient did have her abx regimen adjusted and she did tolerate it well. She was provided with antihistamine and steroid medication which did help her for this. She was otherwise optimized medically with antihypertensives for high blood pressure, statin for high cholesterol, and analgesics for her pain. During her course of stay, she did improve. The plan of care was discussed with the patient and patient did verbalize her understanding. On the day of discharge, patient was in stable condition,. Discussed plan of care with Dr. [facility] Active Scripts Clindamycin Hcl* (Clindamycin Hcl*) 300 Mg Capsule, 300 MG PO Q8, #15 CAP Prov:CHANNING HARLEY TEST DESK OPERATOR 01/22/19 Prednisone* (Prednisone*) 20 Mg Tab, 20 MG PO DAILY, #3 TAB Prov:CHANNING HARLEY TEST DESK OPERATOR 01/22/19 Saccharomyces Boulardii* (Florastor*) 250 Mg Cap, 500 MG PO BID, #40 CAP Prov:CHANNING HARLEY NP 01/22/19 [place]-3/Dha/Epa/Fish Oil (Fish Oil 1,000 mg Softgel) 1,000 Mg Capsule, 1000 MG PO BID, #30 CAP Prov:CHANNING HARLEY TEST DESK OPERATOR 01/22/19 Atorvastatin* (Atorvastatin*) 40 Mg Tablet, 40 MG PO DAILY, #30 TAB Prov:CHANNING HARLEY NP 01/22/19 Reported Medications Lorazepam* (Lorazepam*) 0.5 Mg Tablet, 0.5 MG PO DAILY PRN for AGITATION/ANXIETY, TAB 02/16/15 Gabapentin* (Gabapentin*) 600 Mg Tablet, 600 MG PO TID, TAB 02/16/15 Tramadol HCl (Tramadol HCl) 50 Mg Tab, 50 MG PO Q6H PRN for PAIN, TAB 02/16/15 Ibuprofen* (Ibuprofen*) 800 Mg Tab, 800 MG PO Q6H PRN for PAIN, TAB 02/16/15 Ranitidine Hcl (Ranitidine Hcl) 300 Mg Capsule, 300 MG PO DAILY, CAP 02/16/15 Omeprazole* (Omeprazole*) 40 Mg Capsule.dr, 40 MG PO DAILY, CAP 02/16/15 Pantoprazole* (Pantoprazole*) 40 Mg Tablet.dr, 40 MG PO DAILY, TAB 11/24/14 Meloxicam* (Meloxicam*) 7.5 Mg/5 Ml Oral.susp, 15 MG PO DAILY, ML 08/27/14 Lisinopril* (Lisinopril*) 5 Mg Tablet, 5 MG PO DAILY, TAB 08/27/14 Meclizine Hcl* (Meclizine Hcl*) 12.5 Mg Tablet, 12.5 MG PO DAILY PRN for NAUSEA AND/OR VOMITING, TAB 08/27/14 Gabapentin* (Gabapentin*) 300 Mg Capsule, 300 MG PO BID, CAP 08/27/14 Spironolactone* (Aldactone*) 25 Mg Tablet, 25 MG PO DAILY, TAB 08/27/14 Cholecalciferol* (Vitamin D*) 5,000 Unit Tablet, 5000 UNIT PO DAILY, TAB 08/27/14 Furosemide* (Furosemide*) 40 Mg Tablet, 40 MG PO DAILY, TAB 08/27/14 Discontinued Reported Medications [Atorvastatin Calcium] No Conflict Check, 20 MG DAILY 02/16/15 [Spironolactone] No Conflict Check 02/16/15 Meclizine Hcl* (Meclizine Hcl*) 25 Mg Tablet, 25 MG PO DAILY, TAB 02/16/15 Cholecalciferol* (Vitamin D*) 5,000 Unit Tablet, 5000 UNIT PO DAILY, TAB 02/16/15 [Clotri] No Conflict Check 02/16/15 Lisinopril* (Lisinopril*) 5 Mg Tablet, 5 MG PO BID, TAB 02/16/15 Lisinopril* (Lisinopril*) 5 Mg Tablet, 5 MG PO DAILY, TAB 02/16/15 Pantoprazole* (Pantoprazole*) 20 Mg Tablet.dr, 20 MG PO DAILY, TAB 08/27/14 Ranitidine Hcl* (Ranitidine Hcl*) 300 Mg Tablet, 300 MG PO DAILY, TAB 08/27/14 Lorazepam* (Lorazepam*) 0.5 Mg Tablet, 0.5 MG PO DAILY PRN for ANXIETY, TAB 08/27/14 Tramadol HCl (Tramadol HCl) 50 Mg Tab, 50 MG PO BID PRN for PAIN, TAB 08/27/14 Atorvastatin (Lipitor) 20 Mg Tablet, 20 MG PO DAILY 06/18/11 Follow-up Plan 1. Follow up with your primary care provider in one week Primary Care Provider Not On Staff Doctor Time spent on discharge: > 30 minutes Pending Labs Laboratory Tests Test 01/22/19 04:40 White Blood Count 11.1 10^3/ul (4.8-10.8) Red Blood Count 4.65 10^6/ul (4.20-5.40) Hemoglobin 13.2 g/dl (12.0-16.0) Hematocrit 40.3 % (37.0-47.0) Mean Corpuscular Volume 86.7 fl (82.0-101.0) Mean Corpuscular Hemoglobin 28.4 pg (29.0-33.0) Mean Corpuscular Hemoglobin Concent 32.8 g/dl (32.0-37.0) Red Cell Distribution Width 12.8 % (11.5-14.5) Platelet Count 252 10^3/UL (140-415) Mean Platelet Volume 9.9 fl (7.4-10.4) Immature Granulocytes % 0.400 % (0.001-0.429) Neutrophils % 88.4 % (39.0-77.0) Lymphocytes % 8.2 % (15.0-51.0) Monocytes % 2.8 % (0.0-11.0) Eosinophils % 0.0 % (0.0-7.0) Basophils % 0.2 % (0.0-2.0) Nucleated Red Blood Cells % 0.0 /100WBC (0.0-0.0) Immature Granulocytes # 0.040 10^3/ul (0.0-0.031) Neutrophils # 9.8 10^3/ul (1.6-7.5) Lymphocytes # 0.9 10^3/ul (0.8-2.9) Monocytes # 0.3 10^3/ul (0.3-0.9) Eosinophils # 0.0 10^3/ul (0.0-0.5) Basophils # 0.0 10^3/ul (0.0-0.1) Nucleated Red Blood Cells # 0.0 10^3/ul (0.0-0.0) Sodium Level 140 mmol/L (135-144) Potassium Level 4.5 mmol/L (3.5-5.1) Chloride Level 105 mmol/L (97-110) Carbon Dioxide Level 27 mmol/L (21-31) Anion Gap 8 (5-13) Blood Urea Nitrogen 13 mg/dl (7-20) Creatinine 0.70 mg/dl (0.44-1.00) Est Glomerular Filtrat Rate mL/min > 60 mL/min (>60) Glucose Level 152 mg/dl (70-220) Calcium Level 9.6 mg/dl (8.4-10.2) CHANNING HARLEY NP Jan 22, 2019 22:02
[2019-01-23] MEDS ORDERED: ATORVASTATIN 40 MG TAB PO SCH (09:00)
== END 2019-01-22 15:00 | disposition home or self-care (01) | DRG 603 ==
LOC: 2NE 07:05
PROVIDERS: ADMIT Internal Medicine; ATTEND Internal Medicine
DX: L03.115 Cellulitis of right lower limb (principal); Z68.41 Body mass index [BMI] 40.0-44.9, adult; E66.9 Obesity, unspecified; I10 Essential (primary) hypertension; E78.5 Hyperlipidemia, unspecified; G62.9 Polyneuropathy, unspecified; K21.9 Gastro-esophageal reflux disease without esophagitis; Z90.710 Acquired absence of both cervix and uterus; L29.9 Pruritus, unspecified; L50.9 Urticaria, unspecified
CPT/HCPCS: 80048; 80053; 80061; 80202; 83036; 84436; 84479; 85025; 87081; 93971; J0696; J1200; J1644; J2543; J2930; J3370; J7040; J7512